=== PATIENT | female | born 1995 | race Caucasian/White ===

== ENCOUNTER → 2018-03-04 | Outpatient (CLI) | payer BC | LOC: ZCOL.LAB 13:38 | DX: N89.9 Noninflammatory disorder of vagina, unspecified (principal) ==

== ENCOUNTER → 2018-03-14 | Outpatient (CLI) | payer OTHER ==
[2018-03-14 12:47] LABS: COLLECTION METHOD CLEAN CATCH
[2018-03-14 13:10] LABS: PH 6 (5-8); SQUAMOUS EPITHELIAL None Seen /hpf; URINE APPEARANCE Clear; URINE BACTERIA None Seen /hpf; URINE BILIRUBIN Negative (NEGATIVE); URINE BLOOD Negative (NEGATIVE); URINE COLOR Straw; URINE GLUCOSE Negative (NEGATIVE); URINE KETONE Negative (NEGATIVE); URINE LEUKOCYTE ESTERASE Negative (NEGATIVE); URINE NITRATE Negative (NEGATIVE); URINE PROTEIN(semi-quant) Negative (NEGATIVE); URINE RBC 0-2 /hpf; URINE UROBILINOGEN Negative (NEGATIVE); URINE WBC 0-2 /hpf
== END ==
LOC: COL.LAB 12:12
PROVIDERS: Family Medicine
DX: R30.0 Dysuria (principal)

== ENCOUNTER 2018-04-29 10:46 | Outpatient (RCR) | payer OTHER | END 2018-07-28 | disposition home or self-care (01) | LOC: WSOH | DX: Z77.21 Contact with and (suspected) exposure to potentially hazardous body fluids (principal); W46.0XXA Contact with hypodermic needle, initial encounter; Y93.F9 Activity, other caregiving; Y92.239 Unspecified place in hospital as the place of occurrence of the external cause; Y99.0 Civilian activity done for income or pay; Z79.899 Other long term (current) drug therapy ==

== ENCOUNTER → 2018-06-27 | Outpatient (CLI) | payer OTHER ==
[2018-06-27 23:34] LABS: HEPATITIS B SURFACE ANTIBODY 204.3 (())
== END ==
LOC: COL.LAB 11:50
PROVIDERS: Family Medicine
DX: Z78.9 Other specified health status (principal)

== ENCOUNTER → 2018-07-20 | Outpatient (CLI) | payer OTHER | LOC: COL.LAB 16:50 | DX: N94.10 Unspecified dyspareunia (principal) ==

== ENCOUNTER → 2018-08-16 | Outpatient (CLI) | payer OTHER | LOC: COL.LAB 11:22 | DX: R19.7 Diarrhea, unspecified (principal) ==

== ENCOUNTER → 2018-08-18 | Outpatient (CLI) | payer OTHER ==
[~2018-08-18] MED LIST: ALLEGRA 180MG180 MG PO; FLONASEALLERGY NS; MULTI VITAMINS1 TAB PO; PROZAC 20MG20 MG PO; SPRINTEC 35 MCG1 TAB PO
[2018-08-18 13:21] LABS: BASO % 0.6 % (0.0-2.0); EOS # 0.2 (0.0-0.7); EOS % 2.3 % (0-4.0); GRAN # 4.1 (1.4-6.5); GRAN % 62.5 % (42.2-75.2); HEMATOCRIT 39.1 % (37.0-47.0); HEMOGLOBIN 13.5 g/dl (12.5-16.0); LYMPH # 1.8 (1.2-3.4); LYMPH % 27.8 % (20.0-51.0); MEAN CELL VOLUME 89 fl (80.0-100.0); MEAN CORPUSCULAR HEMOGLOBIN 31 pg (27.0-31.0); MEAN CORPUSCULAR HGB CONC 35 g/dl (33.0-37.0); MEAN PLATELET VOLUME 9.8 fl (7.4-10.4); MONO # 0.4 (0.1-0.6); MONO % 6.5 % (1.7-9.3); PLATELET COUNT 297 K/mm3 (130-400); RED BLOOD COUNT 4.41 M/mm3 (4.10-5.30); REDCELL DISTRIBUTION WIDTH-CV 11.6 % (11.5-14.5)
[2018-08-18 13:32] LABS: ALBUMIN 4.2 gm/dL (3.5-5.0); BILIRUBIN,TOTAL 0.5 mg/dL (0.0-1.0); C-REACTIVE PROTEIN 0.8 mg/dL (0.0-0.9); CALCIUM 9.7 mg/dL (8.4-10.2); CREATININE, serum 0.84 (0.52-1.25); POTASSIUM 4.2 mmol/L (3.4-5.0); TOTAL PROTEIN 7.3 gm/dL (6.4-8.2)
== END ==
LOC: COL.LAB 12:55
PROVIDERS: Family Medicine
DX: R19.7 Diarrhea, unspecified (principal)

== ENCOUNTER 2018-08-22 05:14 | Emergency (ER) | payer OTHER ==
[~2018-08-22] VITALS: Ht 162.6 cm; Wt 6.8 kg
[2018-08-22 05:17] VITALS: TEMP 97.8
[2018-08-22] MEDS ORDERED: PROZAC 20MG20 MG PO (05:22)
[2018-08-22] MEDS ORDERED: SPRINTEC 35 MCG1 TAB PO (05:22)
[2018-08-22] MEDS ORDERED: MULTI VITAMINS1 TAB PO (05:23)
[2018-08-22] MEDS ORDERED: FLONASEALLERGY NS (05:23)
[2018-08-22] MEDS ORDERED: ALLEGRA 180MG180 MG PO (05:23)
[2018-08-22 05:43] LABS: BASO # 0.1 (0.0-0.2); BASO % 0.6 % (0.0-2.0); EOS # 0.2 (0.0-0.7); EOS % 1.6 % (0-4.0); GRAN # 8.7 (1.4-6.5); GRAN % 68.4 % (42.2-75.2); HEMATOCRIT 42.2 % (37.0-47.0); HEMOGLOBIN 14.9 g/dl (12.5-16.0); LYMPH # 2.8 (1.2-3.4); LYMPH % 21.7 % (20.0-51.0); MEAN CELL VOLUME 88 fl (80.0-100.0); MEAN CORPUSCULAR HEMOGLOBIN 31 pg (27.0-31.0); MEAN CORPUSCULAR HGB CONC 35 g/dl (33.0-37.0); MEAN PLATELET VOLUME 9.7 fl (7.4-10.4); MONO # 0.9 (0.1-0.6); MONO % 7.3 % (1.7-9.3); PLATELET COUNT 412 K/mm3 (130-400); RED BLOOD COUNT 4.82 M/mm3 (4.10-5.30); REDCELL DISTRIBUTION WIDTH-CV 11.5 % (11.5-14.5)
[2018-08-22 05:56] LABS: BILIRUBIN,TOTAL 0.8 mg/dL (0.0-1.0); CALCIUM 9.5 mg/dL (8.4-10.2); CREATININE, serum 0.87 (0.52-1.25); POTASSIUM 3.7 mmol/L (3.4-5.0)
[2018-08-22 09:15] VITALS: BP 108/72
[2018-08-22 09:57] LABS: COLLECTION METHOD CLEAN CATCH
[2018-08-22 10:04] LABS: MUCOUS Present /lpf; PH 6 (5-8); SQUAMOUS EPITHELIAL 0-2 /hpf; URINE APPEARANCE Hazy; URINE BACTERIA Rare /hpf; URINE BILIRUBIN Negative (NEGATIVE); URINE BLOOD Negative (NEGATIVE); URINE COLOR Amber; URINE GLUCOSE Negative (NEGATIVE); URINE KETONE 2+ (NEGATIVE); URINE LEUKOCYTE ESTERASE Negative (NEGATIVE); URINE NITRATE Negative (NEGATIVE); URINE PROTEIN(semi-quant) 2+ (NEGATIVE); URINE RBC 0-2 /hpf; URINE UROBILINOGEN Negative (NEGATIVE)
[2018-08-22 10:20] VITALS: PULSE 68
[2018-08-24] MEDS ORDERED: VANCOCIN H125 MG/CAP PO (11:28)
== END 2018-08-22 10:20 | disposition home or self-care (01) ==
LOC: COL.ER 05:14
PROVIDERS: Emergency Medicine
DX: R19.7 Diarrhea, unspecified (principal); R11.10 Vomiting, unspecified; R10.9 Unspecified abdominal pain; F41.9 Anxiety disorder, unspecified; Z79.51 Long term (current) use of inhaled steroids
CPT/HCPCS: J2405; J7030

== ENCOUNTER → 2018-08-22 | Outpatient (CLI) | payer OTHER ==
[~2018-08-22] MED LIST changes: +VANCOCIN H125 MG/CAP PO
== END ==
LOC: ZCOL.LAB 20:10
DX: Z01.89 Encounter for other specified special examinations (principal)